=== PATIENT | female | born 1945 | race Caucasian/White ===

== ENCOUNTER → 2016-12-27 | Outpatient (CLI) | payer OTHER, BC ==
[~2016-12-27] MED LIST: AMLODIPINE BESYL5 M1 PO; APAP/HYDROCODON1 T13 PO; ASPIR 8181 MG PO; BENADRYL ALLERG25 M1 PO; BG MC; BISOPROLOL FUMA10 MG PO; BYSTOLIC10 M1 GT; BYSTOLIC10 M1 PO; COZAAR100 MG; CYCLOBENZAPRINE5 MG PO; DEXPF IV; HEP5I SC; HUMULIN R100 U/1 M1 SC; HYDROCHLOROTHIA25 MG; KEFLEX500 MG PO; LAC PO; METFORMIN ER500 M1 PO; MUCINEX600 MG PO; NEXIUM20 MG PO; NORCO1 TA2 PO; OXYBUTYNIN5 M1 PO; QVAR0.08 MG/Ac IH; SIMVASTATIN20 M1 PO; SYMBICORT1 AE2 IH; [UNRECOGNIZED DRUG - CODE] NS
== END | disposition home or self-care (01) ==
LOC: RD 10:22
DX: M86.09 Acute hematogenous osteomyelitis, multiple sites (principal); M25.511 Pain in right shoulder